=== PATIENT | female | born 1945 | race Caucasian/White ===

== ENCOUNTER 2024-11-16 15:28 | Observation (INO) | payer MEDICARE ==
[2024-11-16] VITALS (24 sets, daily range): BP systolic 102–141; BP diastolic 45–100
[~2024-11-16] VITALS: Ht 167.6 cm; Wt 110.0 kg
[~2024-11-16 15:28] MED LIST: GABAPENTIN100 MG PO; GABAPENTIN600 MG PO; LORTAB 1010 MG PO; NORVASC5 M1 PO; ORPHENADRINE C100 M1 PO; TRIAMTERENE50 MG
--- NOTE | 2024-11-16 15:30 | NUR ---
PATIENT TO ER ROOM 12 VIA WHEELCHAIR ACCOMPANIED BY SPOUSE.
[2024-11-16] MEDS ORDERED: SODIUM CHLORIDE 0.9% 1,000 ML IV ONE (15:50)
[2024-11-16] MEDS ORDERED: ISOVUE-300 (Iopamidol) 100 ML SDV IV ONE (15:50)
[2024-11-16 16:15] LABS: BASO% 0.5 % (0-3); EOS% 0.5 % (0-8); HEMATOCRIT 46.7 % (37.0-47.0); HEMOGLOBIN 15.7 g/dl (12.0-16.0); IMMATURE GRANULOCYTES 0.5 % (0.0-5.0); LYMPH% 12.3 % (15-41); MEAN CELL VOLUME 88.1 fL CALC (80.0-100.0); MEAN CORPUSCULAR HGB 29.6 pG CALC (26.0-32.0); MEAN CORPUSCULAR HGB CONC 33.6 g/dL CAL (32.0-36.0); MONO% 6.3 % (2-13); NEUT# 8.24 thou/uL (2.00-7.15); NEUT% 79.9 % (42-76); RED BLOOD COUNT 5.3 mill/uL (4.20-5.60); RED CELL DISTRI WIDTH 13.6 % (11.5-15.5)
[2024-11-16 16:23] LABS: ALBUMIN 3.7 g/dL (3.2-5.0); BILIRUBIN, TOTAL 0.7 mg/dL (0.02-1.3); CREATININE 1.2 mg/dL (0.5-1.0); POTASSIUM 3.1 mmol/l (3.5-5.1); TOTAL PROTEIN 6.8 g/dL (6.3-8.2)
--- NOTE | 2024-11-16 17:00 | NUR ---
NO ACUTE DISTRESS NOTED. PATIENT LYING IN BED WITH NO ACUTE DISTRESS NOTED AT THIS TIME.
[2024-11-16] MEDS ORDERED: POTASSIUM CHLORIDE 20 MEQ/TAB PO ONE (17:25)
--- NOTE | 2024-11-16 18:51 | NUR ---
REPORT GIVEN TO ONCOMING NURSE.
[2024-11-16] MEDS ORDERED: NEURONTIN600 MG PO (18:58)
[2024-11-16] MEDS ORDERED: LEVOTHYROXIN137 MCG PO (18:58)
[2024-11-16] MEDS ORDERED: BENZONATATE200 MG PO (18:59)
--- NOTE | 2024-11-16 19:00 | NUR ---
RECIEVED REPORT FROM HENRY BRAVO. PT AWIATING FOR ADMISSION AT THIS TIME AND ROOM ASSIGNMENT.
[2024-11-16] MEDS ORDERED: ARNUITY EL50 MCG/ACT (19:01)
[2024-11-16] MEDS ORDERED: PROTONIX40 M2 PO (19:01)
[2024-11-16] MEDS ORDERED: ATORVASTATIN CA10 MG PO (19:01)
[2024-11-16] MEDS ORDERED: ALPRAZOLAM0.5 M2 PO (19:03)
[2024-11-16] MEDS ORDERED: METOPROLOL SUCC50 MG PO (19:04)
--- NOTE | 2024-11-16 20:20 | NUR ---
PATIENT CAME IN VIA [facility] FROM ER AT 1955. A&O X4. NO COMPLAINTS OF PAIN AT THIS TIME. FAMILY AT BEDSIDE. BEDSIDE ASSESSMENT COMPLETE. EQUAL UNLABORED RESP. NO VISUAL SIGNS OF DISTRESS. LUNG SOUNDS CLEAR. BOWEL SOUNDS PRESENT IN ALL 4 QUADRENTS. ABDOMEN SOFT AND DISTENED. PEDAL PULSES STRONG. BED AT LOWEST POSITION. CALL LIGHT WITH IN REACH.
--- NOTE | 2024-11-16 20:40 | NUR ---
pt updated on poc, room 269 given, awaiting for admitting orders at this time.
--- NOTE | 2024-11-16 21:33 | NUR ---
CALLED MJ CAZARES, GAVE PT REPORT. PT GOING ON TELE MONITOR.
[2024-11-16] MEDS ORDERED: MAGNESIUM HYDROXIDE 30 ML UDC PO PRN (21:35)
[2024-11-16] MEDS ORDERED: ACETAMINOPHEN 325 MG/TAB PO PRN (21:35)
[2024-11-16] MEDS ORDERED: SODIUM CHLORIDE 0.9% 1,000 ML IV PRN (21:35)
--- NOTE | 2024-11-16 21:40 | NUR ---
MENTAL HEALTH PROGRAM SPECIALIST CALLED TO BEDSIDE DUE TO PT AGITATION FOR EAIT TIME, PT UPDATED ON CONTINUOUS PLAN OF CARE AND ADMISSION PROCESS, PT VOICES UNDERSTANDING WITH MILD TONE, PT VOICES APPRECIATION OF CARE, PT C/O POSSIBLE FEVER, ASSESSED AT THIS TIME WITH ORAL TEMP OF 99.3, PRIMARY NURSE MADE AWARE TO ALERT MS2 NURSE. PT BELONGINGS GATHER AND TELE APPLIED, PT TRANSFERRED TO MS2 VIA STRETCHER WITH PRIMARY NURSE AT THIS TIME.
[2024-11-17] VITALS: BP 109/47
[2024-11-17 00:23] LABS: URINE BILIRUBIN - DIPSTICK Negative (NEGATIVE); URINE BLOOD DIPSTICK Negative (NEGATIVE); URINE GLUCOSE - DIPSTICK Negative (NEGATIVE); URINE KETONE Trace mg/dL (NEGATIVE); URINE LEUK ESTERASE Negative (NEGATIVE); URINE NITRITE - DIPSTICK Negative (Negative); URINE PROTEIN - DIPSTICK 30 mg/dL (NEG-TRACE); URINE UROBILINOGEN - DIPSTICK 0.2 E.U./dL (0.2)
[2024-11-17 00:26] LABS: URINE COLOR Yellow
--- NOTE | 2024-11-17 00:40 | NUR ---
PATIENT IN ROOM RESTING IN BED WATCHING TV. FAMILY AT BEDSIDE. NO COMPLAINTS OF PAIN AT THIS TIME. BED AT LOWEST POSITION. CALL LIGHT WITH IN REACH.
[2024-11-17 00:44] LABS: URINE BACTERIA MODERATE hpf; URINE EPITHELIAL CELLS MODERATE EPI/hpf (0-FEW); URINE YEAST FEW hpf
[2024-11-17 04:00] VITALS: BP 124/53
--- NOTE | 2024-11-17 04:15 | NUR ---
PATIENT OBSERVED TO BE RESTING IN BED AWAKE. PATIENT CAN MAKE NEEDS KNOWN, NONE NEEDED AT THIS TIME. EQUAL UNLABORED RESP NO VISUAL SIGNS OF DISTRESS. BED AT LOWEST POSITION. CALL LIGHT WITH IN REACH.
--- NOTE | 2024-11-17 07:20 | NUR ---
PT LAYING IN BED RESTING WITH EYES CLOSED, AROUSES EASILY TO VERBAL STIMULI, PT IS A&O X3, PUPILS PERRL, RESP. EVEN AND UNLABORED, LUNG SOUNDS ARE CLEAR , ABD DISTENDED AND SOFT WITH ACTIVE BOWEL SOUNDS, 18G LAC IV PT COMPLAINED OF PAIN, IV REMOVED AND NEW IV STARTED, 22G LFA STARTED WITHOUT INCIDENT, STRONG RADIAL PULSES, WEAK PEDAL PULSES, PT ASSISTED TO THE BSC, PT AMBULATED WITH AN UNSTEADY GAIT, SAFETY MEASURES REINFORCED, CALL HAMMONDS WITHIN REACH
[2024-11-17 08:45] LABS: BASO% 0.4 % (0-3); EOS% 0.7 % (0-8); IMMATURE GRANULOCYTES 0.6 % (0.0-5.0); LYMPH% 14.7 % (15-41); MEAN CELL VOLUME 90.5 fL CALC (80.0-100.0); MEAN CORPUSCULAR HGB 30.2 pG CALC (26.0-32.0); MEAN CORPUSCULAR HGB CONC 33.3 g/dL CAL (32.0-36.0); MONO% 8.1 % (2-13); NEUT# 5.38 thou/uL (2.00-7.15); NEUT% 75.5 % (42-76); RED BLOOD COUNT 4.31 mill/uL (4.20-5.60)
[2024-11-17 09:16] LABS: BILIRUBIN, TOTAL 0.5 mg/dL (0.02-1.3); CREATININE 0.9 mg/dL (0.5-1.0); MAGNESIUM 1.6 mg/dL (1.6-2.3); TOTAL PROTEIN 5.6 g/dL (6.3-8.2)
[2024-11-17] MEDS ORDERED: HYDROcodone/Acetaminophen 1 COMBO TAB PO PRN (11:10)
[2024-11-17] MEDS ORDERED: POTASSIUM CHLORIDE 20 MEQ/TAB PO SCH (11:30)
[2024-11-17] MEDS ORDERED: GABAPENTIN 300 MG/CAP PO SCH (11:30)
[2024-11-17] MEDS ORDERED: LEVOTHYROXINE SODIUM 112 MCG/TAB PO SCH (12:00)
[2024-11-17] MEDS ORDERED: LEVOTHYROXINE SODIUM 25 MCG/TAB PO SCH (12:00)
[2024-11-17] MEDS ORDERED: METOPROLOL SUCCINATE 50 MG/TAB PO SCH ×2 (12:00→21:00)
[2024-11-17] MEDS ORDERED: PANTOPRAZOLE SODIUM Sesquihydr 40 MG/TAB PO SCH ×2 (12:00→21:00)
--- NOTE | 2024-11-17 12:00 | NUR ---
PT LAYING IN BED WATCHING TV, PT REFUSED SOFT DIET AND REQUESTED JELLO AND SOUP, PT PROVIDED WITH A WARM BLANKET FOR COMFORT, PT DENIES ANY NEEDS AT THIS TIME, CALL HAMMONDS WITHIN REACH
[2024-11-17] MEDS ORDERED: metroNIDAZOLE 500 MG/TAB PO SCH (15:00)
[2024-11-17 16:00] VITALS: BP 108/56
--- NOTE | 2024-11-17 16:00 | NUR ---
PT ASSISTED TO THE BSC AND BACK TO BED, PT AMBULATES WITH A SLOW UNSTEADY GAIT, PT TOLERATED WELL, SAFETY MEASURES REINFORCED, CALL HAMMONDS WITHIN REACH
--- NOTE | 2024-11-17 19:51 | NUR ---
PATIENT OBSERVED TO BE RESTING IN BED WATCHING TV. FAMILY AT BEDSIDE. EQUAL UNLABORED RESP NO VISUAL SIGNS OF DISTRESS. BOWEL SOUNDS PRESENT IN ALL 4 QUADRENTS. ABDOMEN SOFT AND DISTEDED. NO COMPLAINTS OF PAIN AT THIS TIME. BED AT LOWEST POSITION. CALL LIGHT WITH IN REACH.
[2024-11-17 19:56] VITALS: BP 119/49
[2024-11-17] MEDS ORDERED: Zaleplon 5 MG/CAP PO PRN (20:20)
[2024-11-17] MEDS ORDERED: ATORVASTATIN CALCIUM 10 MG/TAB PO SCH (21:00)
[2024-11-17] MEDS ORDERED: ENOXAPARIN SODIUM 40 MG/0.4 ML SYR SC SCH (21:00)
[2024-11-17 23:56] VITALS: BP 124/60
[2024-11-18] VITALS (7 sets, daily range): BP systolic 110–143; BP diastolic 43–58
--- NOTE | 2024-11-18 00:18 | NUR ---
PATIENT OBSERVED TO TO BE AWAKE WATCHING TV. PATIENT CAN MAKE NEEDS KNOWN, NONE NEEDED AT THIS TIME. CPAP ON. EQUAL UNLABORED RESP. NO VISUAL SIGNS OF DISTRESS. BED AT LOWEST POSITION. CALL LIGHT WITH IN REACH.
--- NOTE | 2024-11-18 04:40 | NUR ---
PATIENT OBSERVED TO BE RESTING IN BED. PATIENT RESPONDS TO VERBAL STIMULI. NO COMPLAINTS OF PAIN AT THIS TIME. EQUAL UNLABORED RESP. BED AT LOWEST POSITION. CALL LIGHT WITH IN REACH.
[2024-11-18 05:42] LABS: BASO% 0.5 % (0-3); EOS% 1.4 % (0-8); HEMATOCRIT 37.9 % (37.0-47.0); HEMOGLOBIN 12.7 g/dl (12.0-16.0); IMMATURE GRANULOCYTES 1.6 % (0.0-5.0); LYMPH% 20.1 % (15-41); MEAN CELL VOLUME 91.5 fL CALC (80.0-100.0); MEAN CORPUSCULAR HGB 30.7 pG CALC (26.0-32.0); MEAN CORPUSCULAR HGB CONC 33.5 g/dL CAL (32.0-36.0); NEUT# 4.18 thou/uL (2.00-7.15); NEUT% 67.4 % (42-76); RED BLOOD COUNT 4.14 mill/uL (4.20-5.60)
[2024-11-18 05:47] LABS: ALBUMIN 2.6 g/dL (3.2-5.0); BILIRUBIN, TOTAL 0.4 mg/dL (0.02-1.3); CREATININE 0.8 mg/dL (0.5-1.0); MAGNESIUM 1.6 mg/dL (1.6-2.3); POTASSIUM 3.2 mmol/l (3.5-5.1); TOTAL PROTEIN 5.1 g/dL (6.3-8.2)
--- NOTE | 2024-11-18 08:00 | NUR ---
PT WAS SLEEPING, EASILY AROUSABLE. PT IS LAYING IN BED. CALL LIGHT IN REACH.
[2024-11-18] MEDS ORDERED: POTASSIUM CHLORIDE 20 MEQ/TAB PO SCH (08:30)
--- NOTE | 2024-11-18 11:32 | NUR ---
TELEMETRY REMOVED AND RETURNED.
--- NOTE | 2024-11-18 12:06 | NUR ---
PT IS LAYING IN BED, CALL LIGHT IN REACH.
--- NOTE | 2024-11-18 15:59 | NUR ---
PT IS LAYING DOWN IN BED, WATCHING TV. CALL LIGHT IN REACH.
--- NOTE | 2024-11-18 20:00 | NUR ---
RECEIVED REPORT FROM NURSE TRICIA, PATIENT RESTING IN BED, BREATHING EVN UNLABORED,STATED STILL HAVING FREQUENT BOUTS OF LIQUID BM, IV INFUSING WELL ON LFA NS @ 100CC/HR, C/O GEN BODY PAIN, WILL MEDICATE. CALL LIGHT IN REACHED.
[2024-11-18 21:01] LABS: URINE BILIRUBIN - DIPSTICK Negative (NEGATIVE); URINE BLOOD DIPSTICK Negative (NEGATIVE); URINE COLOR Yellow; URINE GLUCOSE - DIPSTICK Negative (NEGATIVE); URINE KETONE Negative (NEGATIVE); URINE LEUK ESTERASE Trace (NEGATIVE); URINE NITRITE - DIPSTICK Negative (Negative); URINE PH 5.5 (4.5-8.0); URINE PROTEIN - DIPSTICK Negative (NEG-TRACE); URINE UROBILINOGEN - DIPSTICK 0.2 E.U./dL (0.2)
--- NOTE | 2024-11-19 00:13 | NUR ---
CADENCE RESTING IN BED, NO DISCOMFORTS NOTED AT THIS TIME, WEARS HOME CPAP, CALL LIGHT IN REACHED.
--- NOTE | 2024-11-19 03:30 | NUR ---
PATIENT RSETING IN BED EYES CLSOED, WEARS HOME CPAP, BREATHING EVEN UNLABORED NO DISCOMFORTS NOTED AT THSI TIME.CALL LIGHT IN REACHED.
[2024-11-19 04:15] LABS: BASO% 0.5 % (0-3); EOS% 1.3 % (0-8); HEMOGLOBIN 11.5 g/dl (12.0-16.0); IMMATURE GRANULOCYTES 1.3 % (0.0-5.0); LYMPH% 17.3 % (15-41); MEAN CELL VOLUME 91.9 fL CALC (80.0-100.0); MEAN CORPUSCULAR HGB 30.2 pG CALC (26.0-32.0); MEAN CORPUSCULAR HGB CONC 32.9 g/dL CAL (32.0-36.0); MONO% 8.1 % (2-13); NEUT# 5.4 thou/uL (2.00-7.15); NEUT% 71.5 % (42-76); RED BLOOD COUNT 3.81 mill/uL (4.20-5.60); RED CELL DISTRI WIDTH 14.3 % (11.5-15.5)
[2024-11-19 04:20] VITALS: BP 118/45
[2024-11-19 04:26] LABS: ALBUMIN 2.5 g/dL (3.2-5.0); BILIRUBIN, TOTAL 0.3 mg/dL (0.02-1.3); CREATININE 0.8 mg/dL (0.5-1.0); MAGNESIUM 1.2 mg/dL (1.6-2.3); POTASSIUM 3.7 mmol/l (3.5-5.1)
[2024-11-19 04:30] VITALS: BP 114/97
--- NOTE | 2024-11-19 04:54 | NUR ---
PATIENT CALLED STATED AROUND 0420, HEART RATE RACING, FELT A LITTLE DIZZY, PATIENT FURTHER STATED THAT SHE GOT STARTLED WHEN RECREATION ADVISER WOKE HER UP, V/S OBTAINED 114/97 HR RANGE 170'S-180'S, SPO2 @ 95% ON ROOM AIR, STAT EKG ORDERED, WHEN EKG OBTAINED HR ALREADY SLOWED DOWM TO 80'S AND 90'S, PATIENT FEES BETTER, AT THIS TIME. WILL NOTIFY
[2024-11-19 05:49] VITALS: BP 111/48
--- NOTE | 2024-11-19 06:50 | NUR ---
MD UPDATED WITH HR 170-180'S, NEW ORDER TO PLACED PATIENT BACK ON TELEMETRY.
--- NOTE | 2024-11-19 07:35 | NUR ---
PATIENT PLACED ON TELE# 8.
--- NOTE | 2024-11-19 08:00 | NUR ---
PATIENT LAYING IN BED NO C/O PAIN NO SOB . LNO DIZZYNESS AT THIS TIME .
[2024-11-19] MEDS ORDERED: METRONIDAZOLE500 MG PO (10:29)
[2024-11-19] MEDS ORDERED: ZYVOX600 MG PO (10:30)
[2024-11-19] MEDS ORDERED: SLOW-MAG PO (10:31)
[2024-11-19] MEDS ORDERED: MAGNESIUM SULFATE HEPTAHYDRATE 100 ML IV SCH (11:00)
[2024-11-19 12:00] VITALS: BP 111/48
--- NOTE | 2024-11-19 12:00 | NUR ---
PATIENT RESTING IN BED NO C/O PAIN . TOLERATING IV TX WELL. WILL BE DISCHARGE TODAY.
--- NOTE | 2024-11-19 13:30 | NUR ---
PATIENT FINISHING IV TX AND WILL BE SENT HOME TO DAY.NO C/O PAIN
--- NOTE | 2024-11-19 14:51 | NUR ---
PATIENT WAS DISCHARGE AT 1445. REVEIWED ALL MEDICATIONS AND REVEIWED THE SCRIPTS THAT WERE SENT TO HER PHARMACY. WENT OVER DISCHARGE AND FOLLOW UP INSTRUCTIONS WITH PATIENT. IV SITE SKIN INTACT. . PATIENT LEFT WITH ALL BELONGINGS . IV WAS REMOVED AND TELE WAS RETURED.
--- NOTE | 2024-11-19 15:00 | NUR ---
Discharge instructions given. Patient verbalizes understanding of same. Discharged in stable condition via Wheelchair to Home with staff. All belongings sent with pt. IV REMOVED AND TELE RETURNED
--- NOTE | 2024-11-21 13:40 | NUR ---
Discharge follow up call completed 11/21/24. Patient states she is doing well, althhough she is still weak. Patient is taking prescribed medication as directed. Patient intends to contact PCP this week and schedule a follow up appointment. No needs or concerns verbalized by patient at this time.
== END 2024-11-19 14:50 | disposition home or self-care (01) ==
LOC: ED 15:28 → ED-I 18:26 → ED 18:42 → MS2 18:43
PROVIDERS: Nurse Practitioner; Nurse Practitioner Family; ADMIT Internal Medicine; ATTEND Internal Medicine
DX: R19.7 Diarrhea, unspecified (principal); N17.9 Acute kidney failure, unspecified; E86.0 Dehydration; E87.6 Hypokalemia; K43.9 Ventral hernia without obstruction or gangrene; N39.0 Urinary tract infection, site not specified; B95.2 Enterococcus as the cause of diseases classified elsewhere; I10 Essential (primary) hypertension; J44.9 Chronic obstructive pulmonary disease, unspecified; E78.5 Hyperlipidemia, unspecified; E03.9 Hypothyroidism, unspecified; F41.9 Anxiety disorder, unspecified; I47.10 Supraventricular tachycardia, unspecified; E66.9 Obesity, unspecified; Z87.11 Personal history of peptic ulcer disease
CPT/HCPCS: G0378; J1650; J2020; J3475; Q9967